=== PATIENT | male | born 1930 | race Caucasian/White ===

== ENCOUNTER 2019-03-24 19:58 | Emergency (ER) | payer OTHER ==
[2019-03-24 21:21] LABS: Absolute Lymphocytes (CBC) 0.6 K/uL (0.7-4.9); Absolute Monocytes 0.7 K/uL (0.1-1.3); Absolute Neutrophil 5.8 K/uL (1.8-8.0); Basophils % 0.3 % (0-1.3); Eosinophils % 0.1 % (0-4.4); Hematocrit 29.8 % (39.6-49.0); Lymphocytes % 8.5 % (15.3-44.8); MPV 8.4 fL (7.6-11.3); Monocytes % 9.7 % (3.3-12.3); RBC Red Blood Cell Count 3.08 M/uL (4.33-5.43)
[2019-03-24 21:22] LABS: Protime INR 1.17
[2019-03-24 21:46] LABS: ALT/SGPT 14 U/L (12-78); AST/SGOT 10 U/L (15-37); Albumin 3.4 g/dL (3.4-5.0); Alkaline Phosphatase 73 U/L (45-117); BUN Blood Urea Nitrogen 24 mg/dL (7-18); Bicarbonate 25 mmol/L (21-32); Bilirubin Direct 0.2 mg/dL (0-0.2); Glucose Level 107 mg/dL (74-106); Magnesium 2.2 mg/dL (1.8-2.4); Potassium 4.2 mmol/L (3.5-5.1); Protein, Total 6.8 g/dL (6.4-8.2); Sodium Level 141 mmol/L (136-145); Troponin (Emerg Dept Use Only) < 0.02 ng/mL (0.0-0.045)
[2019-03-24] MEDS ORDERED: NA CHLORIDE 0.9% 500 ML ONE (22:42)
[2019-03-24] MEDS ORDERED: ACETAMINOPHEN 500 MG TAB ONE (23:29)
--- NOTE | 2019-03-24 23:35 | ER ---
Nurse's Notes [facility] Name: Ilan Dixon Age: 88 yrs Sex: Male : 1930 Arrival Date: 03/24/2019 Time: 20:02 Bed 19 [facility] MD: Diagnosis: Influenza due to unidentified influenza virus Presentation: 03/24 20:04 Presenting complaint: Patient states: I started not feeling well last night. I have had ed1 a fever and I have been dizzy. Transition of care: patient was not received from another setting of care. Onset of symptoms was March 23, 2019. Risk Assessment: Do you want to hurt yourself or someone else? Patient reports no desire to harm self or others. Initial Sepsis Screen: Does the patient meet any 2 criteria? No. Patient's initial sepsis screen is negative. Does the patient have a suspected source of infection? No. Patient's initial sepsis screen is negative. Care prior to arrival: None. 20:04 Method Of Arrival: Ambulatory ed1 20:04 Acuity: THEODORE 3 ed1 Triage Assessment: 20:06 General: Appears in no apparent distress. Behavior is calm, cooperative. Pain: ed1 Complains of pain in joints Quality of pain is described as aching. GI: Reports nausea, Patient currently denies vomiting. Historical: - Allergies: 20:06 No Known Allergies; ed1 - Home Meds: 20:06 Unable to obtain [Active]; ed1 - PMHx: 20:06 Hypertension; Anemia; ed1 - PSHx: 20:06 Sinus surgery; ed1 - Immunization history:: Adult Immunizations up to date, Flu vaccine is up to date. - Social history:: Smoking status: Patient/guardian denies using tobacco. - Ebola Screening: : Patient negative for fever greater than or equal to 101.5 degrees Fahrenheit, and additional compatible Ebola Virus Disease symptoms Patient denies exposure to infectious person Patient denies travel to an Ebola-affected area in the 21 days before illness onset No symptoms or risks identified at this time. Screenin:24 Abuse screen: Denies threats or abuse. Denies injuries from another. Nutritional cc3 screening: No deficits noted. Tuberculosis screening: No symptoms or risk factors identified. Fall Risk Ambulatory Aid- None/Bed Rest/Nurse Assist (0 pts). Gait- Normal/Bed Rest/Wheelchair (0 pts) Mental Status- Oriented to own ability (0 pts). Assessment: 20:24 GI: Abdomen is flat. cc3 20:24 General: Appears in no apparent distress. comfortable, Behavior is calm, cooperative, cc3 appropriate for age. Neuro: Level of Consciousness is awake, alert, obeys commands, Oriented to person, place, time, situation, Appropriate for age. Cardiovascular: Patient's skin is warm and dry. Respiratory: Airway is patent Respiratory effort is even, unlabored, Respiratory pattern is regular, symmetrical. : No signs and/or symptoms were reported regarding the genitourinary system. EENT: No signs and/or symptoms were reported regarding the EENT system. Derm: No signs and/or symptoms reported regarding the dermatologic system. Musculoskeletal: Circulation, motion, and sensation intact. Range of motion: limited in bilateral lower limbs. 21:20 Reassessment: Patient appears in no apparent distress at this time. Patient and/or cc3 family updated on plan of care and expected duration. Pain level reassessed. Patient is alert, oriented x 3, equal unlabored respirations, skin warm/dry/pink. Patient came back from CT scan department, awaiting result. 22:18 Reassessment: Patient appears in no apparent distress at this time. Patient and/or cc3 family updated on plan of care and expected duration. Pain level reassessed. Patient is alert, oriented x 3, equal unlabored respirations, skin warm/dry/pink. 23:15 Reassessment: Patient appears in no apparent distress at this time. Patient and/or cc3 family updated on plan of care and expected duration. Pain level reassessed. Patient is alert, oriented x 3, equal unlabored respirations, skin warm/dry/pink. 03/25 00:00 Reassessment: Patient appears in no apparent distress at this time. Patient and/or cc3 family updated on plan of care and expected duration. Pain level reassessed. Patient is alert, oriented x 3, equal unlabored respirations, skin warm/dry/pink. TIFFANIE Barrios discharged the patient home with prescription given. IV cannula removed and patient left ER vitally stable by wheelchair escorted by [facility] and the patient's son. Patient denies pain at this time. Patient states feeling better. Patient states symptoms have improved. Vital Signs: 03/24 20:06 BP 136 / 60; Pulse 63; Resp 16; Temp 98.8; Pulse Ox 96% on R/A; Weight 61.23 kg; Height ed1 5 ft. 5 in. (165.10 cm); Pain 5/10; 21:45 BP 148 / 57; Pulse 65; Resp 20 S; Pulse Ox 100% on R/A; cc3 22:35 BP 150 / 69; Pulse 81; Resp 19 S; Temp 102.2(O); Pulse Ox 100% on R/A; cc3 23:30 BP 135 / 53; Pulse 72; Resp 19 S; Pulse Ox 99% on R/A; cc3 23:50 BP 131 / 57; Pulse 73; Resp 19 S; Temp 101.8(O); Pulse Ox 99% on R/A; cc3 20:06 Body Mass Index 22.46 (61.23 kg, 165.10 cm) ed1 ED Course: 20:02 Patient arrived in ED. es 20:05 Triage completed. ed1 20:06 Arm band placed on right wrist. ed1 20:24 Tavia Pan is Primary Nurse. cc3 20:24 Ubaldo Barrios NP is PHCP. pm1 20:24 Nando Daily MD is Attending Physician. pm1 20:24 Patient has correct armband on for positive identification. Placed in gown. Bed in low cc3 position. Call light in reach. Side rails up X2. secured entrance monitor on. Pulse ox on. NIBP on. 20:52 CT completed. Patient tolerated procedure well. Patient moved to CT. Patient moved back vt from CT. 20:59 XRAY Chest (1 view) In Process Unspecified. EDMS 21:01 CT Head Brain wo Cont In Process Unspecified. EDMS 21:30 Inserted saline lock: 20 gauge in right antecubital area, using aseptic technique. cc3 Blood collected. 03/25 00:00 No provider procedures requiring assistance completed. IV discontinued, intact, cc3 bleeding controlled, No redness/swelling at site. Pressure dressing applied. Administered Medications: 03/24 22:30 Drug: NS 0.9% 500 ml Route: IV; Rate: bolus; Site: right antecubital; cc3 23:20 Follow up: Response: No adverse reaction; IV Status: Completed infusion; IV Intake: cc3 500ml 23:20 Drug: Tylenol 1000 mg Route: PO; cc3 23:50 Follow up: Response: No adverse reaction; Temperature is decreased cc3 23:25 Drug: Rocephin 1 grams Route: IV; Rate: calculated rate; Site: right antecubital; cc3 23:40 Follow up: Response: No adverse reaction; IV Status: Completed infusion; IV Intake: 08dain6 Intake: 23:20 IV: 500ml; Total: 500ml. cc3 23:40 IV: 10ml; Total: 510ml. cc3 Outcome: 23:35 Discharge ordered by MD. pm1 03/25 00:00 Discharged to home via wheelchair, with family. cc3 Condition: stable Discharge instructions given to patient, family, Instructed on discharge instructions, follow up and referral plans. medication usage, Demonstrated understanding of instructions, follow-up care, medications, Prescriptions given X 2. 00:08 Patient left the ED. cc3 Signatures: Dispatcher [employer] EDMS Dorinda Aleman Erika, RN RN ed1 Ubaldo Barrios NP SEED CLEANER OPERATOR pm1 Suman Swift Charlene cc3 Corrections: (The following items were deleted from the chart) 03/24 23:44 20:24 GI: Abdomen is flat, cc3 cc3
--- NOTE | 2019-03-24 23:35 | EDPHYS ---
Physician Documentation [facility] Name: Ilan Dixon Age: 88 yrs Sex: Male : 1930 Arrival Date: 03/24/2019 Time: 20:02 Bed 19 Private MD: ED Physician Nando Daily HPI: 03/24 21:05 This 88 yrs old Male presents to ER via Ambulatory with complaints of Fever, pm1 Dizziness, Nausea, Stiff joints. 21:05 The patient reports fever, not measured (subjective). Onset: The symptoms/episode pm1 began/occurred last night. Modifying factors: there are no obvious modifying factors. Associated signs and symptoms: Pertinent positives: cough, with clear sputum, body aches and joint pain, Pertinent negatives: abdominal pain, chest pain, diarrhea, skin rash, shortness of breath, sore throat, vomiting. Severity of symptoms: in the emergency department the symptoms have improved cough is not productive now. The patient has not experienced similar symptoms in the past. The patient has not recently seen a physician. Historical: - Allergies: 20:06 No Known Allergies; ed1 - Home Meds: 20:06 Unable to obtain [Active]; ed1 - PMHx: 20:06 Hypertension; Anemia; ed1 - PSHx: 20:06 Sinus surgery; ed1 - Immunization history:: Adult Immunizations up to date, Flu vaccine is up to date. - Social history:: Smoking status: Patient/guardian denies using tobacco. - Ebola Screening: : Patient negative for fever greater than or equal to 101.5 degrees Fahrenheit, and additional compatible Ebola Virus Disease symptoms Patient denies exposure to infectious person Patient denies travel to an Ebola-affected area in the 21 days before illness onset No symptoms or risks identified at this time. ROS: 21:05 Eyes: Negative for injury, pain, redness, and discharge, ENT: Negative for injury, pm1 pain, and discharge, Neck: Negative for injury, pain, and swelling. 21:05 Cardiovascular: Negative for chest pain, palpitations, and edema. 21:05 Abdomen/GI: Negative for abdominal pain, nausea, vomiting, diarrhea, and constipation, Back: Negative for injury and pain, : Negative for injury, bleeding, discharge, and swelling, MS/Extremity: Negative for injury and deformity, Skin: Negative for injury, rash, and discoloration, Neuro: Negative for headache, weakness, numbness, tingling, and seizure. 21:05 Constitutional: Positive for body aches, fever, Negative for poor PO intake. 21:05 Respiratory: Positive for cough, Negative for shortness of breath, sputum production, wheezing. Exam: 21:05 Constitutional: This is a well developed, well nourished patient who is awake, alert, pm1 and in no acute distress. Head/Face: Normocephalic, atraumatic. Eyes: Pupils equal round and reactive to light, extra-ocular motions intact. Lids and lashes normal. Conjunctiva and sclera are non-icteric and not injected. Cornea within normal limits. Periorbital areas with no swelling, redness, or edema. ENT: Nares patent. No nasal discharge, no septal abnormalities noted. Tympanic membranes are normal and external auditory canals are clear. Oropharynx with no redness, swelling, or masses, exudates, or evidence of obstruction, uvula midline. Mucous membranes moist. Neck: Trachea midline, no thyromegaly or masses palpated, and no cervical lymphadenopathy. Supple, full range of motion without nuchal rigidity, or vertebral point tenderness. No Meningismus. Chest/axilla: Normal chest wall appearance and motion. Nontender with no deformity. No lesions are appreciated. Cardiovascular: Regular rate and rhythm with a normal S1 and S2. No gallops, murmurs, or rubs. Normal PMI, no JVD. No pulse deficits. Respiratory: Lungs have equal breath sounds bilaterally, clear to auscultation and percussion. No rales, rhonchi or wheezes noted. No increased work of breathing, no retractions or nasal flaring. Abdomen/GI: Soft, non-tender, with normal bowel sounds. No distension or tympany. No guarding or rebound. No evidence of tenderness throughout. Back: No spinal tenderness. No costovertebral tenderness. Full range of motion. Skin: Warm, dry with normal turgor. Normal color with no rashes, no lesions, and no evidence of cellulitis. MS/ Extremity: Pulses equal, no cyanosis. Neurovascular intact. Full, normal range of motion. 21:05 Neuro: Orientation: is normal, Motor: is normal, moves all fours, Gait: is steady, at a normal pace, without difficulty. Vital Signs: 20:06 BP 136 / 60; Pulse 63; Resp 16; Temp 98.8; Pulse Ox 96% on R/A; Weight 61.23 kg; Height ed1 5 ft. 5 in. (165.10 cm); Pain 5/10; 21:45 BP 148 / 57; Pulse 65; Resp 20 S; Pulse Ox 100% on R/A; cc3 22:35 BP 150 / 69; Pulse 81; Resp 19 S; Temp 102.2(O); Pulse Ox 100% on R/A; cc3 23:30 BP 135 / 53; Pulse 72; Resp 19 S; Pulse Ox 99% on R/A; cc3 23:50 BP 131 / 57; Pulse 73; Resp 19 S; Temp 101.8(O); Pulse Ox 99% on R/A; cc3 20:06 Body Mass Index 22.46 (61.23 kg, 165.10 cm) ed1 MDM: 20:35 Patient medically screened. pm1 23:28 Data reviewed: vital signs. Data interpreted: Pulse oximetry: on room air is 100 %. pm1 Interpretation: normal. 23:31 Counseling: I had a detailed discussion with the patient and/or guardian regarding: the pm1 historical points, exam findings, and any diagnostic results supporting the discharge/admit diagnosis, lab results, radiology results, the need for outpatient follow up, to return to the emergency department if symptoms worsen or persist or if there are any questions or concerns that arise at home. 03/24 20:42 Order name: Basic Metabolic Panel; Complete Time: 21:56 pm1 03/24 20:42 Order name: CBC with Diff; Complete Time: 21:29 pm1 03/24 20:42 Order name: LFT's; Complete Time: 21:56 pm1 03/24 20:42 Order name: Magnesium; Complete Time: 21:56 pm1 03/24 20:42 Order name: PT-INR; Complete Time: 21:29 pm1 03/24 20:42 Order name: Troponin (emerg Dept Use Only); Complete Time: 21:56 pm1 03/24 20:42 Order name: XRAY Chest (1 view) pm1 03/24 20:42 Order name: EKG; Complete Time: 20:44 pm1 03/24 20:42 Order name: Cardiac monitoring; Complete Time: 20:46 pm03/24 20:42 Order name: Flu; Complete Time: 21:29 pm03/24 20:42 Order name: CT Head Brain wo Cont 03/24 20:42 Order name: EKG - Nurse/Tech; Complete Time: 20:46 pm1 03/24 20:42 Order name: IV Saline Lock; Complete Time: 21:34 pm03/24 20:42 Order name: Labs collected and sent; Complete Time: 21:35 pm03/24 20:42 Order name: O2 Per Protocol; Complete Time: 20:46 pm03/24 20:42 Order name: O2 Sat Monitoring; Complete Time: 20:46 pm1 Administered Medications: 22:30 Drug: NS 0.9% 500 ml Route: IV; Rate: bolus; Site: right antecubital; cc3 23:20 Follow up: Response: No adverse reaction; IV Status: Completed infusion; IV Intake: cc3 500ml 23:20 Drug: Tylenol 1000 mg Route: PO; cc3 23:50 Follow up: Response: No adverse reaction; Temperature is decreased cc3 23:25 Drug: Rocephin 1 grams Route: IV; Rate: calculated rate; Site: right antecubital; cc3 23:40 Follow up: Response: No adverse reaction; IV Status: Completed infusion; IV Intake: [id number] Disposition: 03/24/19 23:35 Discharged to Home. Impression: Influenza due to unidentified influenza virus. - Condition is Stable. - Discharge Instructions: Influenza, Adult. - Prescriptions for Zithromax Z- Teddy 250 mg Oral Tablet - take 1 tablet by ORAL route as directed for 5 days Day 1 - take two (2) tablets one time. Day 2, 3, 4 , 5 take one (1) tablet once daily.; 6 tablet. Tamiflu 75 mg Oral Capsule - take 1 tablet by ORAL route every 12 hours for 5 days; 10 tablet. - Medication Reconciliation Form, Thank You Letter, Antibiotic Education, Prescription Opioid Use form. - Follow up: Emergency Department; When: As needed; Reason: Worsening of condition. Follow up: Private Physician; When: 2 - 3 days; Reason: Recheck today's complaints, Continuance of care, Re-evaluation by your physician. - Problem is new. - Symptoms have improved. Addendum: 03/28/2019 02:13 Co-signature as Attending Physician, Nando Daily MD. g s Signatures: Dispatcher [employer] EDMS Sarah Fuchs, RN RN ed1 Ubaldo Barrios, GROUNDWATER MONITORING TECHNICIAN GROUNDWATER MONITORING TECHNICIAN pm1 Nando Daily MD MD Tavia Pan cc3 Corrections: (The following items were deleted from the chart) 03/25 00:08 03/24 23:35 03/24/2019 23:35 Discharged to Home. Impression: Influenza due to cc3 unidentified influenza virus. Condition is Stable. Forms are Medication Reconciliation Form, Thank You Letter, Antibiotic Education, Prescription Opioid Use. Follow up: Emergency Department; When: As needed; Reason: Worsening of condition. Follow up: Private Physician; When: 2 - 3 days; Reason: Recheck today's complaints, Continuance of care, Re-evaluation by your physician. Problem is new. Symptoms have improved. pm1
[2019-03-24] MEDS ORDERED: CEFTRIAXONE/SWI 1gm 1 GM/10 ML SYR ONE (23:38)
--- NOTE | 2019-03-25 07:25 | EKG ---
Test Date: 2019-03-24 Test Time: 20:23:14 Pharmacy Order Entry Technician: ALEJANDRO MEASUREMENT RESULTS: Intervals: Rate: 56 [place]: 172 QRSD: 70 QT: 406 QTc: 391 [place]: P: 33 [place]: 172 QRS: 0 T: 49 INTERPRETIVE STATEMENTS: Sinus bradycardia Otherwise normal ECG No previous ECG available for comparison Electronically Signed On 03-25-19 07:25:17 CDT by Dyllan Abreu
--- NOTE | 2019-03-25 07:53 | RAD REPORT ---
EXAM DESCRIPTION: RAD - Chest Single View - 03/24/2019 9:00 pm CLINICAL HISTORY: Cough COMPARISON: None. TECHNIQUE: AP portable chest image was obtained 8 hours . FINDINGS: Lungs are clear. Heart and vasculature are normal. No measurable pleural effusion and no p neumothorax. Scoliotic curvature in the spine is present. No acute bone finding. No acute aortic find ings suspected. IMPRESSION: No acute cardiopulmonary process.
--- NOTE | 2019-03-25 10:46 | RAD REPORT ---
EXAM DESCRIPTION: CT - Head Brain Wo Cont - 03/24/2019 9:37 pm CLINICAL HISTORY: 88 years Male DIZZINESS COMPARISON: None TECHNIQUE: Images were obtained in axial, sagittal, and coronal planes. This exam was performed according to our departmental dose-optimization program which includes use of Automated Exposure Control, adjustment of the mA and/or kV according to patient size and/or use of i terative reconstruction technique. FINDINGS: Ventricular system is moderately enlarged. Mild prominence of the cortical sulci. No abnormal areas of increased or decreased attenuation involving the brain parenchyma. No extra-axia l fluid collections. No evidence for skull fracture. Sclerotic changes mastoid air cells bilaterally. Unremarkable paranas al sinuses. IMPRESSION: No acute intracranial abnormality. No evidence for hemorrhage, mass lesion, or large acute infarction. Age-appropriate changes. Electronically signed by: Chula Avina MD 03/24/2019 9:14 PM CDT Due to temporary technical issues with the PACS/Fluency reporting system, reports are being signed by the in house radiologist as a courtesy to ensure prompt reporting. The interpreting radiologist is f ully responsible for the content of the report.
== END 2019-03-25 00:08 | disposition home or self-care (01) ==
LOC: ER 19:58
DX: J11.1 Influenza due to unidentified influenza virus with other respiratory manifestations (principal); I10 Essential (primary) hypertension
CPT/HCPCS: 96361; 93005; 85025; 80048; 36415; 83735; 85610; 80076; 84484; 87804 ×2; 70450; 71045; 96374; 99285; J0696